=== PATIENT | male | born 1970 | race African-American/Black ===

== ENCOUNTER 2016-04-13 11:59 | Emergency (ER) | payer SELFPAY ==
[~2016-04-13] VITALS: Ht 182.9 cm; Wt 115.0 kg
[2016-04-13 12:00] VITALS: BP 130/74; PULSE 105; RESP 12; TEMP 98.1; O2SAT 98
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
== END 2016-04-13 14:31 | disposition left against medical advice (07) ==
LOC: NEPB 11:59
DX: M54.9 Dorsalgia, unspecified (principal); G89.29 Other chronic pain
CPT/HCPCS: 99281

== ENCOUNTER 2017-10-17 21:31 | Inpatient (IN) ==
[2017-10-18] MEDS ORDERED: Aluminum/Magnesium/Simethacone Susp 30 ML UDC PO PRN (00:16)
[2017-10-18] MEDS: Acetaminophen 325 MG Tablet PO PRN ×2 (09:18→20:38)
[2017-10-18 10:17] LABS: Baso % (Auto) 0.5 % (0.0-2.0); Eos # (Auto) 0.2 th/mm3 (0.0-0.4); Eos % (Auto) 2.3 % (0.0-4.0); Hematocrit 43.6 % (39.0-51.0); Hemoglobin 14.2 gm/dL (13.0-17.0); Lymph # (Auto) 2.1 th/mm3 (1.0-4.8); Lymph % (Auto) 26.8 % (9.0-44.0); Mean Corpuscular HGB Conc 32.6 % (32.0-36.0); Mean Corpuscular Hemoglobin 32.9 pg (27.0-34.0); Mean Corpuscular Volume 100.7 fL (80.0-100.0); Mean Platelet Volume 6.5 fL (7.0-11.0); Mono # (Auto) 0.6 th/mm3 (0.0-0.9); Mono % (Auto) 7.8 % (0.0-8.0); Neut # (Auto) 4.8 th/mm3 (1.8-7.7); Neut % (Auto) 62.6 % (16.0-70.0); Platelet Count 293 th/mm3 (150-450); Red Blood Count 4.33 mil/mm3 (4.50-5.90); White Blood Count 7.7 th/mm3 (4.0-11.0)
[2017-10-18 10:49] LABS: Albumin 3.6 g/dL (3.4-5.0); Anion Gap 8 meq/L (5-15); Aspartate Aminotransferase 15 U/L (15-37); Blood Urea Nitrogen 13 mg/dL (7-18); Chloride 107 meq/L (98-107); Glomerular Filtration Rate 82 mL/min (>89); Glucose,Random 108 mg/dL (74-106); Potassium 3.8 meq/L (3.5-5.1); Sodium 141 meq/L (136-145)
[2017-10-18 10:55] LABS: Alanine Aminotransferase 26 U/L (12-78); Alkaline Phosphatase 56 U/L (45-117); Total Protein 7.4 g/dL (6.4-8.2)
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
[2017-10-18] MEDS: QUEtiapine 25 MG Tablet PO SCH (20:35)
[2017-10-18] MEDS: Latanoprost 0.005% Opth Drops 2.5 ML Bottle EACH EYE SCH ×2 (20:36→21:22)
[2017-10-19] MEDS: Acetaminophen 325 MG Tablet PO PRN ×2 (05:20→20:23)
[2017-10-19] MEDS: QUEtiapine 25 MG Tablet PO SCH (08:17)
--- NOTE | 2017-10-19 09:15 | P.PNPSY ---
Subjective Chief Complaint: Gibbons Act Remarks: Patient seen and examined with counselor. Chart reviewed. Case discussed with nursing staff. Patient reportedly slept poorly overnight. Case discussed with counselor. Counselor will with patient's permission reach out to patient's parents for collateral information. On my examination today, the patient seems more paranoid and irritable compared to yesterday. He is particularly concerned about the blood draw this morning for lipid panel and hemoglobin A1c. He continues to complain of formication and says that he was experiencing vague auditory hallucinations overnight. He slept poorly. He denies any suicidal or homicidal ideation at this time. Denies any side effects from medications. Complains of low back pain and neck pain, both chronic and is accepting of offer of Lidoderm patch. No other physical complaints. Vital Signs Temp Pulse Resp BP Pulse Ox 10/19/17 05:43 97.5 F L in error. Actual value is 85/min. 18 138/75 97 10/19/17 05:31 97.5 F L 85 18 138/75 97 10/18/17 23:53 18 10/18/17 18:23 98.7 F 88 19 136/74 99 Laboratory Results - last 24 hr 10/18/17 09:52 Sodium 141 Potassium 3.8 Chloride 107 Carbon Dioxide 26.0 Anion Gap 8 BUN 13 Creatinine 1.16 Estimated GFR 82 L Random Glucose 108 H Calcium 9.0 Total Bilirubin 0.3 AST 15 ALT 26 Alkaline Phosphatase 56 Total Protein 7.4 Albumin 3.6 Labs reviewed. Laboratories obtained this morning are pending. Review of Systems All other systems reviewed negative except as stated in HPI Mental Status Examination Appearance: Disheveled Consciousness: Alert Orientation: Person, Place (at least) Motor Activity: Normal gait, Other (No motoric abnormalities noted) Speech: Unremarkable Language: Adequate Fund of Knowledge: Adequate Attention and Concentration: Adequate Memory: Unremarkable Mood: Irritable Affect: Irritable Thought Process & Associations: Intact Thought Content: Hallucinations Hallucination Type: Tactile Delusion Type: Paranoid Suicidal Ideation: No Suicidal Plan: No Suicidal Intention: No Homicidal Ideation: No Homicidal Plan: No Homicidal Intention: No Insight: Poor Judgment: Impulsive Assessment and Plan - Assessment (1) Unspecified psychosis Code(s): F29 - Unspecified psychosis not due to a substance or known physiological condition Status: Acute (2) Polysubstance abuse Code(s): F19.10 - Other psychoactive substance abuse, uncomplicated Status: Acute - Plan Plan: Titrate Seroquel to 100 mg twice daily to target psychosis, increased dose to begin this evening. Lidoderm patch for low back pain. Counselor to obtain collateral information. Continue to observe on the high acuity unit. Continue other medications and care as ordered. Justification for Continued Inpatient Stay: Medication changes. Impairment in reality construction. High risk for decompensation in less restrictive environment. Discharge Planning: Pending psychiatric stabilization. Request Healthcare Surrogate/Guardian Advocate?: No (1) Unspecified psychosis Qualifiers: Psychosis type: unspecified psychosis type Qualified Code(s): F29 - Unspecified psychosis not due to a substance or known physiological condition
[2017-10-19 10:41] LABS: Calcium 8.8 mg/dL (8.5-10.1); Carbon Dioxide 27.4 meq/L (21.0-32.0); Potassium 3.4 meq/L (3.5-5.1)
[2017-10-19 10:43] LABS: Chol/HDL Ratio 2.95 Ratio; HDL Cholesterol 54.8 mg/dL (40.0-60.0)
[2017-10-19 15:19] LABS: Hemoglobin A1c 5.9 % (4.3-6.0)
[2017-10-19] MEDS: Lidocaine 5% Patch T-DERMAL SCH (16:27)
[2017-10-19] MEDS: QUEtiapine 100 MG Tablet PO SCH (20:24)
[2017-10-19] MEDS: Latanoprost 0.005% Opth Drops 2.5 ML Bottle EACH EYE SCH (20:38)
[2017-10-20] MEDS: Acetaminophen 325 MG Tablet PO PRN (03:59)
[2017-10-20] MEDS: Lidocaine 5% Patch T-DERMAL SCH (08:33)
[2017-10-20] MEDS: QUEtiapine 100 MG Tablet PO SCH (08:33)
--- NOTE | 2017-10-20 13:02 | P.PNPSY ---
Subjective Chief Complaint: Gibbons Act Remarks: Patient seen and examined with nurse. Chart reviewed. Case discussed with nursing staff. No behavioral issues noted. On my examination today, the patient complains of poor sleep. He feels irritable and although he denies any homicidal ideation he does continue to endorse some violent thoughts against people outside the hospital as noted previously. No audiovisual hallucinations but the patient complains of persistent formication. No side effects from medications. No new physical complaints. Back pain is somewhat improved with Lidoderm patch. Vital Signs Temp Pulse Resp BP Pulse Ox 10/20/17 05:32 98.3 F 88 17 124/69 97 10/19/17 16:44 98.3 F 98 H 18 149/78 H 98 Laboratory Results - last 24 hr 10/19/17 09:01 Hemoglobin A1c 5.9 Labs reviewed. Review of Systems All other systems reviewed negative except as stated in HPI Mental Status Examination Appearance: Appropriate (Fair grooming) Consciousness: Alert Orientation: Person, Place (at least) Motor Activity: Other (No motor abnormalities noted) Speech: Unremarkable Language: Adequate Fund of Knowledge: Adequate Attention and Concentration: Adequate Memory: Unremarkable Mood: Irritable Affect: Irritable Thought Process & Associations: Intact Thought Content: Hallucinations Hallucination Type: Tactile Delusion Type: Paranoid (Decreasing) Suicidal Ideation: No Suicidal Plan: No Suicidal Intention: No Homicidal Ideation: No Homicidal Plan: No Homicidal Intention: No Insight: Fair Judgment: Impulsive Assessment and Plan - Assessment (1) Unspecified psychosis Code(s): F29 - Unspecified psychosis not due to a substance or known physiological condition Status: Acute (2) Polysubstance abuse Code(s): F19.10 - Other psychoactive substance abuse, uncomplicated Status: Acute - Plan Plan: Titrate Seroquel to 100 mg in the morning and 200 mg at bedtime to target residual psychotic symptoms and lessen irritability. Patient's complaints of formication were suspected to be substance-induced but seemed quite persistent. I will request a hospitalist consultation to assess for possible, e.g. dermatologic issues. Continue to monitor on the inpatient unit. Continue other medications and care as ordered. Justification for Continued Inpatient Stay: Medication changes. Resolving impairments in reality construction. High risk for decompensation in less restrictive environment. Discharge Planning: Pending psychiatric stabilization Request Healthcare Surrogate/Guardian Advocate?: No (1) Unspecified psychosis Qualifiers: Psychosis type: unspecified psychosis type Qualified Code(s): F29 - Unspecified psychosis not due to a substance or known physiological condition
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
[2017-10-20] MEDS: Latanoprost 0.005% Opth Drops 2.5 ML Bottle EACH EYE SCH (21:25)
[2017-10-21] MEDS: QUEtiapine 100 MG Tablet PO SCH (09:29)
--- NOTE | 2017-10-21 12:11 | P.PNIM ---
Subjective Interval history: in no distress. but is upset and not very cooperative today. d/w the RN and no acute issues over night. Physical Exam Vital signs: Vital Signs 10/20/17 16:47 10/21/17 05:46 Temperature 97.9 F Pulse Rate 89 Respiratory Rate 17 18 Blood Pressure 134/74 Pulse Oximetry 97 - Constitutional no acute distress (is not cooperative today.) Results - Labs CBC & Chem 7: 10/18/17 09:52 10/19/17 09:01 Assessment and Plan - Plan A/P - delusional formication continue with antipsychotics per psych- started on Benadryl for symptom relief. -questionable history of hypertension- continue to monitor BP for now.
[2017-10-21] MEDS: Lidocaine 5% Patch T-DERMAL SCH (15:29)
--- NOTE | 2017-10-21 15:50 | P.PNPSY ---
Subjective Chief Complaint: Gibbons Act Remarks: Patient seen and examined with nurse. Chart reviewed. Case discussed with nursing staff. Case discussed with counselor. On my examination today, the patient reports that formication is improved with addition of Benadryl provided by the hospitalist. Sleep remains poor. The patient remained somewhat irritable and paranoid. No other hallucinatory material. Denies any suicidal or homicidal ideation. Denies any side effects from medications, except that he does note that the nicotine patch makes him feel somewhat nauseated as he is only a half a pack a day smoker. No acute physical complaints otherwise. Vital Signs Temp Pulse Resp BP Pulse Ox 10/21/17 05:46 97.9 F 89 18 134/74 97 10/20/17 16:47 17 Labs reviewed. No new labs. Review of Systems All other systems reviewed negative except as stated in HPI Mental Status Examination Appearance: Appropriate Consciousness: Alert Orientation: Person, Place (at least) Motor Activity: Other (No abnormal motor movements noted) Speech: Unremarkable Language: Adequate Fund of Knowledge: Adequate Attention and Concentration: Adequate Memory: Unremarkable Mood: Irritable Affect: Irritable Thought Process & Associations: Intact Thought Content: Hallucinations Hallucination Type: None Delusion Type: Paranoid (Decreasing) Suicidal Ideation: No Suicidal Plan: No Suicidal Intention: No Homicidal Ideation: No Homicidal Plan: No Homicidal Intention: No Insight: Fair Judgment: Impulsive Assessment and Plan - Assessment (1) Unspecified psychosis Code(s): F29 - Unspecified psychosis not due to a substance or known physiological condition Status: Acute (2) Polysubstance abuse Code(s): F19.10 - Other psychoactive substance abuse, uncomplicated Status: Acute - Plan Plan: Titrate Seroquel to 100 mg/300 mg to target residual psychotic symptoms. To consider further titration of Seroquel over the weekend. Reduce nicotine patch dose to 14 mg. Hospitalist input noted and appreciated. Continue to monitor on the inpatient unit. Continue other medications and care as ordered. Justification for Continued Inpatient Stay: Medication changes. Discharge Planning: Possible discharge after the weekend. Request Healthcare Surrogate/Guardian Advocate?: No (1) Unspecified psychosis Qualifiers: Psychosis type: unspecified psychosis type Qualified Code(s): F29 - Unspecified psychosis not due to a substance or known physiological condition
[2017-10-21] MEDS: Latanoprost 0.005% Opth Drops 2.5 ML Bottle EACH EYE SCH (21:00)
[2017-10-22] MEDS: Acetaminophen 325 MG Tablet PO PRN (03:54)
[2017-10-22] MEDS: QUEtiapine 100 MG Tablet PO SCH (09:09)
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
--- NOTE | 2017-10-22 15:26 | P.PNPSY ---
Subjective Chief Complaint: Gibbons Act Remarks: Patient was seen and case discussed with nursing. Patient is showing some signs of kimmie today. He is pressured, hyperverbal, irritable and mildly agitated. He was seen yelling at another patient who try to talk to him. Continues to be perseverative on crawling bugs on his skin. Patient is complaining of insomnia though nursing says he is sleeping well. He has not had any outbursts. Mental Status Examination Appearance: Appropriate Consciousness: Alert Orientation: Person, Place (at least) Motor Activity: Other (No abnormal motor movements noted) Speech: Unremarkable Language: Adequate Fund of Knowledge: Adequate Attention and Concentration: Adequate Memory: Unremarkable Mood: Irritable Affect: Irritable Thought Process & Associations: Intact Thought Content: Hallucinations Hallucination Type: None Delusion Type: Paranoid (Decreasing) Suicidal Ideation: No Suicidal Plan: No Suicidal Intention: No Homicidal Ideation: No Homicidal Plan: No Homicidal Intention: No Insight: Fair Judgment: Impulsive Assessment and Plan - Assessment (1) Unspecified psychosis Code(s): F29 - Unspecified psychosis not due to a substance or known physiological condition Status: Acute (2) Polysubstance abuse Code(s): F19.10 - Other psychoactive substance abuse, uncomplicated Status: Acute - Plan Plan: Continue Seroquel titration Justification for Continued Inpatient Stay: Continue current treatment plan Request Healthcare Surrogate/Guardian Advocate?: No (1) Unspecified psychosis Qualifiers: Psychosis type: unspecified psychosis type Qualified Code(s): F29 - Unspecified psychosis not due to a substance or known physiological condition
[2017-10-22] MEDS: Lidocaine 5% Patch T-DERMAL SCH (15:45)
[2017-10-22] MEDS: Metoprolol Tartrate 25 MG Tablet PO SCH (21:00)
[2017-10-22] MEDS: Latanoprost 0.005% Opth Drops 2.5 ML Bottle EACH EYE SCH (21:23)
[2017-10-23] MEDS: QUEtiapine 100 MG Tablet PO SCH (08:31)
[2017-10-23] MEDS: Lidocaine 5% Patch T-DERMAL SCH (08:31)
[2017-10-23] MEDS: Metoprolol Tartrate 25 MG Tablet PO SCH ×2 (08:31→20:42)
--- NOTE | 2017-10-23 13:46 | P.PNPSY ---
Subjective Chief Complaint: Gibbons Act Remarks: Patient was seen and case discussed with nursing. Patient is improved from yesterday. He is less pressured and hyperverbal. Continues to believe he is not sleeping well despite contrary nursing reports. Patient remains perseverative on any drugs in his system and is asking me for urine drug screen Mental Status Examination Appearance: Appropriate Consciousness: Alert Orientation: Person, Place (at least) Motor Activity: Other (No abnormal motor movements noted) Speech: Unremarkable Language: Adequate Fund of Knowledge: Adequate Attention and Concentration: Adequate Memory: Unremarkable Mood: Irritable Affect: Irritable Thought Process & Associations: Intact Thought Content: Hallucinations Hallucination Type: Auditory (Her his name being called) Delusion Type: Paranoid (Decreasing) Suicidal Ideation: No Suicidal Plan: No Suicidal Intention: No Homicidal Ideation: No Homicidal Plan: No Homicidal Intention: No Insight: Fair Judgment: Impulsive Assessment and Plan - Assessment (1) Unspecified psychosis Code(s): F29 - Unspecified psychosis not due to a substance or known physiological condition Status: Acute (2) Polysubstance abuse Code(s): F19.10 - Other psychoactive substance abuse, uncomplicated Status: Acute - Plan Plan: UDS Justification for Continued Inpatient Stay: Patient would decompensate in a less restrictive setting Request Healthcare Surrogate/Guardian Advocate?: No (1) Unspecified psychosis Qualifiers: Psychosis type: unspecified psychosis type Qualified Code(s): F29 - Unspecified psychosis not due to a substance or known physiological condition
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
[2017-10-23 19:39] LABS: Amphetamine Screen,Urine Neg (Neg); Barbiturate Screen,Urine Neg (Neg); Cannabinoid Screen,Urine Pos (Neg); Cocaine Screen,Urine Pos (Neg)
[2017-10-23 19:44] LABS: Opiate Screen,Urine Neg (Neg)
[2017-10-23] MEDS: Latanoprost 0.005% Opth Drops 2.5 ML Bottle EACH EYE SCH (20:42)
[2017-10-24] MEDS: Acetaminophen 325 MG Tablet PO PRN (02:34)
[2017-10-24] MEDS: QUEtiapine 100 MG Tablet PO SCH (08:24)
[2017-10-24] MEDS: Metoprolol Tartrate 25 MG Tablet PO SCH (08:24)
[2017-10-24] MEDS: Lidocaine 5% Patch T-DERMAL SCH (08:29)
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
== END 2017-10-24 11:50 | disposition home or self-care (01) ==
LOC: H270 23:05
PROVIDERS: ADMIT Psychiatry & Neurology Psychiatry; ATTEND Psychiatry & Neurology Psychiatry
CPT/HCPCS: Q0163

== ENCOUNTER 2018-02-10 13:14 | Inpatient (IN) ==
[2018-02-10] MEDS ORDERED: Aluminum/Magnesium/Simethacone Susp 30 ML UDC PO PRN (14:35)
[2018-02-10] MEDS ORDERED: LORazepam 1 MG Tablet PO PRN (14:46)
[2018-02-11] MEDS: Ibuprofen 600 MG Tablet PO PRN ×3 (01:52→18:37)
[2018-02-11 11:40] LABS: Calcium 8.8 mg/dL (8.5-10.1); Potassium 3.9 meq/L (3.5-5.1)
[2018-02-11 11:43] LABS: Chol/HDL Ratio 2.27 Ratio; HDL Cholesterol 79.2 mg/dL (40.0-60.0)
[2018-02-11 14:07] LABS: Hemoglobin A1c 5.8 % (4.3-6.0)
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
[2018-02-11] MEDS: Gabapentin 300 MG Capsule PO SCH (17:44)
[2018-02-12] MEDS: Ibuprofen 600 MG Tablet PO PRN (02:22)
[2018-02-12] MEDS: Gabapentin 300 MG Capsule PO SCH ×2 (08:31→14:44)
--- NOTE | 2018-02-12 10:10 | P.PNPSY ---
Subjective Chief Complaint: suicidal thoughts Remarks: Patient seen and examined with nurse, Amelia, in weekend coverage. Chart reviewed. Case discussed with nursing staff. No behavioral issues noted overnight. On my examination today, the patient is calm and cooperative. He denies any SI, HI or AVH. He does complain of some residual anxiety at bedtime and overnight and requests that we adjust gabapentin dosing to target this. He insists that he was not in fact suicidal at outside hospital but rather got into an argument with the nurse at the outside hospital and made the suicidal threat out of anger. He tells me he has no reason to be depressed and is in fact quite happy saying that he is going to be getting soon. Denies side effects from medications. Requesting that Motrin be replaced with Tylenol as the Motrin upsets his stomach. LFTs at outside hospital were within normal limits. No physical complaints. Vital Signs Temp Pulse Resp BP Pulse Ox 02/12/18 04:00 98.4 F 82 18 139/102 H 97 02/11/18 18:02 97.9 F 75 18 145/79 H 99 Laboratory Results - last 24 hr 02/11/18 02/11/18 10:40 10:40 Sodium 140 Potassium 3.9 Chloride 107 Carbon Dioxide 25.0 Anion Gap 8 BUN 15 Creatinine 1.19 Estimated GFR 80 L Random Glucose 101 Hemoglobin A1c 5.8 Calcium 8.8 Triglycerides 114 Cholesterol 180 LDL Cholesterol, Calc 78 HDL Cholesterol 79.2 H Cholesterol/HDL Ratio 2.27 Labs reviewed. Review of Systems All other systems reviewed negative except as stated in HPI Mental Status Examination Appearance: Appropriate Consciousness: Alert Orientation: Person, Place (At least) Motor Activity: Other (No motor abnormalities noted) Speech: Unremarkable Language: Adequate Fund of Knowledge: Adequate Attention and Concentration: Adequate Memory: Unremarkable (Grossly intact on clinical exam) Mood: Anxious Affect: Appropriate Thought Process & Associations: Intact Thought Content: Appropriate Hallucination Type: None Delusion Type: None Suicidal Ideation: No Suicidal Plan: No Suicidal Intention: No Homicidal Ideation: No Homicidal Plan: No Homicidal Intention: No Insight: Fair Judgment: Poor Assessment and Plan - Assessment (1) Adjustment disorder with anxious mood Code(s): F43.22 - Adjustment disorder with anxiety Status: Acute (2) Polysubstance abuse Code(s): F19.10 - Other psychoactive substance abuse, uncomplicated Status: Acute - Plan Plan: Titrate gabapentin to 300 mg morning and afternoon and 400 mg at bedtime. Replace Motrin with Tylenol per patient preference. Continue to monitor on the inpatient unit. Continue other care as ordered. Justification for Continued Inpatient Stay: Medication changes. Discharge Planning: Possible discharge tomorrow, Tuesday Request Healthcare Surrogate/Guardian Advocate?: No
[2018-02-12] MEDS: Acetaminophen 325 MG Tablet PO PRN (13:16)
[2018-02-12] MEDS ORDERED: Gabapentin 400 MG Capsule PO SCH (21:00)
[2018-02-13] MEDS: Gabapentin 300 MG Capsule PO SCH ×2 (08:27→14:37)
[2018-02-13] MEDS: Acetaminophen 325 MG Tablet PO PRN (10:45)
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
== END 2018-02-13 14:45 | disposition home or self-care (01) ==
LOC: H270 19:07
PROVIDERS: ADMIT Psychiatry & Neurology Psychiatry; ATTEND Psychiatry & Neurology Psychiatry